=== PATIENT | female | born 1955 | race Two or more races ===

== ENCOUNTER 2024-12-14 20:02 | Emergency (ER) | payer MEDICARE, OTHER ==
[~2024-12-14] VITALS: Ht 147.3 cm; Wt 58.3 kg
--- NOTE | 2024-12-14 20:37 | ED.PDOC ---
Back pain HPI HPI Comments PT PRESENTED TO ED FOR RIGHT KNEE SWELLING/PAIN X1 DAY. PT DENIED NU MBNESS/TINGLING. NO SKIN DISCOLORATION NOTED. RIGHT KNEE, COOL TO TOUCH Time Seen by MD: 20:10 Reviewed Notes: Nurses Notes, Medications, Allergies Allergies: Coded Allergies: No Known Drug Allergy (Verified Allergy, Unknown, 12/14/24) Information Source: Patient Past Medical History PAST MEDICAL HISTORY: DM, High Lipids, HTN Surgical History: Denies all surgeries PRESTIDIGITATOR History: No Pertinent PRESTIDIGITATOR History Family History Family History: Reviewed,noncontributory to illness Social History Smoker: Non-Smoker Alcohol: Denies ETOH Use Drugs: Denies Drug Use Constitutional: denies: chills, diaphoresis, fatigue, fever, malaise, sweats, weakness, others EENTM: denies: blurred vision, double vision, ear bleeding, ear discharge, ear drainage, ear pain, ear ringing, eye pain, eye redness, hearing loss, mouth pain, mouth swelling, nasal discharge, nose bleeding, nose congestion, nose pain, photophobia, tearing, throat pain, throat swelling, voice changes, others Respiratory: denies: cough, hemoptysis, orthopnea, SOB at rest, shortness of breath, SOB with excertion, stridor, wheezing, others Cardiovascular: denies: chest pain, dizzy spells, diaphoresis, Dyspnea on exertion, edema, irregular heart beat, left arm pain, lightheadedness, palpitations, PND, syncope, others Gastrointestinal: denies: abdomen distended, abdominal pain, blood streaked bowels, constipated, diarrhea, dysphagia, difficulty swallowing, hematemesis, melena, nausea, poor appetite, poor fluid intake, rectal bleeding, rectal pain, vomiting, others Genitourinary: denies: abnormal vagina bleeding, burning, dyspareunia, dysuria, flank pain, frequency, hematuria, incontinence, pain, , vagina discharge, urgency, others Neurological: denies: dizziness, fainting, headache, left sided numbness, left sided weakness, numbness, paresthesia, pre-existing deficit, right sided numbness, right sided weakness, seizure, speech problems, tingling, tremors, weakness, others Musculoskeletal: reports: joint pain, joint swelling, muscle pain; denies: back pain, gout, muscle stiffness, neck pain, others Integumetry: denies: bruises, change in color, change in hair/nails, dryness, laceration, lesions, lumps, rash, wounds, others Allergic/Immunocompromised: denies: Difficulty Healing, Frequent Infections, Hives, Itching, others Hematologic/Lymphatic: denies: anemia, blood clots, easy bleeding, easy bruising, swollen glands, others Endocrine: denies: excessive hunger, excessive sweating, excessive thirst, excessive urination, flushing, intolerance to cold, intolerance to heat, unexplained weight gain, unexplained weight loss, others Psychiatric: denies: anxiety, bipolar disorder, depression, hopeless, panic disorder, schizophrenia, sleepless, suicidal, others Physical Exam General Appearance: No Apparent Distress, Normal HEENT: Pharynx Normal Neck: Full Range of Motion, Non-Tender, Normal Respiratory: Lungs Clear, No Respiratory Distress, Normal Breath Sounds Cardiovascular: No Edema, No JVD, No Murmur, No Gallop, Normal Peripheral Pulses, Regular Rate/Rhythm Breast Exam: Deferred Gastrointestinal: Non Tender, Soft Genitalia: Deferred Pelvic: Deferred Rectal: Deferred Extremities: No calf tenderness, Normal capillary refill, Normal inspection, Normal range of motion, Non-tender, No pedal edema Musculoskeletal : Location: Right Extremity Location: Knee (Moderate tenderness palpated over lateral aspect trace edema negative Sundeep's negative drawer test negative ballottement strength sensory motion intact positive pedal pulse positive popliteal pulse) Apperance: Normal Neurologic: Alert, No Motor Deficits, Normal Affect, Normal Mood, No Sensory Deficits Cerebellar Function: Normal Reflexes: Normal Skin: Dry, Normal Color, Warm Lymphatic: No Adenopathy Was a procedure done? Was a procedure done?: No Back Pain Differential Dx Differential Diagnosis: Fracture, Musculoskeletal Pain X-Ray, Labs, Meds, VS Vital Signs Date Time Temp Pulse Resp B/P (MAP) Pulse Ox O2 Delivery O2 Flow Rate FiO2 12/14/24 21:05 98.8 91 18 147/77 (100) 99 98.8 X-Ray, Labs, Meds, VS Comment Right knee x-ray shows no acute fractures, dislocations or osseous lesions. Lik elías a muscle strain. Patient placed in short knee stabilizing brace given [place] reports improvement in pain and function requesting discharge at this time script short-term anti-inflammatory advised on rice. Advised to follow up with her PCP in 2-3 days as necessary consider further imaging such as MRI if symptoms persist. ER return precautions given patient and daughter indicated understanding and agree with discharge plan of care Time of 1ST Reevaluation: 20:37 Reevaluation 1ST: Unchanged Time of 2ND Reevaluation: 22:59 Reevaluation 2ND: Improved Patient Education/Counseling: Diagnosis, Treatment, Prognosis, Need For Follow Up Family Education/Counseling: Diagnosis, Treatment, Prognosis, Need For Follow Up Departure 1 Departure Time of Disposition: 22:55 Impression: Primary Impression: Strain of knee and leg, right Qualified Codes: S86.911A - Strain of unspecified muscle(s) and tendon(s) at lower leg level, right leg, initial encounter Disposition: HOME / SELF CARE / HOMELESS Condition: Stable e-Prescriptions Diclofenac Sodium (Diclofenac Sodium Ec) 50 Mg Tab 1 TAB PO BID PRN for 4 Days, #8 TAB 1 Refill Prov: NORBERT GUTIERREZ 12/14/24 Discharged With: Relative (Sibling) Critical Care Note Critical Care Time?: No Stability Stability form required: No NORBERT GUTIERREZ Dec 14, 2024 20:37
--- NOTE | 2024-12-14 22:37 | DVH ---
EXAM: XY R KNEE 3V XRAY HISTORY: PAIN AND SWELLING COMPARISON: None TECHNIQUE: 3 views of the right knee were performed. FINDINGS: No acute fracture is identified about the right knee. No significant joint space narrowing. No evid ence of significant joint effusion. IMPRESSION: Unremarkable radiographs of the right knee.
[2024-12-14] MEDS ORDERED: DICL50TA4 PO (23:01)
[2024-12-14 23:51] VITALS: BP 185/80; TEMP 97.4
[2024-12-15] MEDS: HYDROcodone-ACET 5/325MG TAB PO ONE (00:01)
[2024-12-15 00:19] VITALS: PULSE 88; RESP 16; O2SAT 96
== END 2024-12-15 00:23 | disposition home or self-care (01) ==
LOC: ER 20:02
DX: S86.811A Strain of other muscle(s) and tendon(s) at lower leg level, right leg, initial encounter (principal); I10 Essential (primary) hypertension; E11.9 Type 2 diabetes mellitus without complications; X58.XXXA Exposure to other specified factors, initial encounter; Y93.89 Activity, other specified; Y92.89 Other specified places as the place of occurrence of the external cause; Y99.8 Other external cause status
CPT/HCPCS: 29530; 73562

== ENCOUNTER 2025-05-14 18:51 | Emergency (ER) | payer MEDICARE, MEDICAID ==
[~2025-05-14] VITALS: Ht 154.9 cm; Wt 68.4 kg
[~2025-05-14 18:51] MED LIST: DICL50TA4 PO
[2025-05-14] MEDS: METOPROLOL TARTRATE 50 MG TAB PO ONE (19:12)
[2025-05-14 19:23] LABS: Hematocrit 40.9 % (36.0-46.0); Hemoglobin 14.3 g/dL (12.2-16.2); Mean Corpuscular Hemoglobin 29.4 pg (28.0-32.0); Mean Corpuscular Volume 84.3 fL (80.0-100.0); Nucleated Red Blood Cells % 0.0 %
[2025-05-14 19:43] LABS: Alanine Aminotransferase 27 U/L (7-40); Calcium 10.1 mg/dL (8.7-10.4); Carbon Dioxide 23 mmol/L (20-31); Potassium 4.0 mmol/L (3.5-5.1)
[2025-05-14 19:44] LABS: Anion Gap 11 (5-15); BUN/Creatinine Ratio 15.7 (10.0-20.0); Bilirubin, Total 0.6 mg/dL (0.2-1.0); Blood Urea Nitrogen 11 mg/dL (9-23); Magnesium 2.0 mg/dL (1.6-2.6); Total Protein 8.0 g/dL (5.7-8.2)
--- NOTE | 2025-05-14 19:47 | ED.PDOC ---
History of Present Illness HPI Comments 69 y/o [place]an-speaking F presents with relative for c/c of anxiety, with associated shortness of breath. Patient reports on sudden and unprovoked onset of symptoms at 1600, this afternoon. She states on having no relief or improvement with stress-relieving tactics, such as meditation and outdoor strolls. Denies any chest pain, cough, fever, chills, or further acute symptoms. Chief Complaint: Anxiety Time Seen by MD: 19:00 Reviewed Notes: Nurses Notes, Medications, Allergies Allergies: Coded Allergies: No Known Drug Allergy (Verified Allergy, Unknown, 12/14/24) Home Meds Active Scripts Cefdinir (Cefdinir) 300 Mg Cap, 1 CAP PO BID for 7 Days, #14 CAP Prov:TATA SANCHES MD 05/14/25 Diclofenac Sodium (Diclofenac Sodium Ec) 50 Mg Tab, 1 TAB PO BID PRN for 4 Days, #8 TAB 1 Refill Prov:NORBERT GUTIERREZ 12/14/24 Information Source: Patient Mode of Arrival: Ambulatory Severity: Moderate Timing: Hours Duration: Since onset Prehospital treatment: None Past Medical History PAST MEDICAL HISTORY: DM, High Lipids, HTN Surgical History: Denies all surgeries STAPLE FIBER WASHER History: No Pertinent STAPLE FIBER WASHER History Family History Family History: Reviewed,noncontributory to illness Social History Smoker: Non-Smoker Alcohol: Denies ETOH Use Drugs: Denies Drug Use Lives In: Home All Other Systems: Reviewed and Negative (Comprehensive review of systems are negative unless stated in HPI) Physical Exam General Appearance: No Apparent Distress, Normal HEENT: Normal ENT Inspection, Pharynx Normal, TMs Normal Neck: Full Range of Motion, Non-Tender, Normal, Normal Inspection Respiratory: Chest Non-Tender, Lungs Clear, No Accessory Muscle Use, No Respiratory Distress, Normal Breath Sounds Cardiovascular: No Edema, No JVD, No Murmur, No Gallop, Normal Peripheral Pulses, Tachycardia (regular rhythm) Breast Exam: Deferred Gastrointestinal: No Organomegaly, Non Tender, No Pulsatile Mass, Normal Bowel Sounds, Soft Genitalia: Deferred Pelvic: Deferred Rectal: Deferred Extremities: No calf tenderness, Normal capillary refill, Normal inspection, Normal range of motion, Non-tender, No pedal edema Musculoskeletal : Apperance: Normal Neurologic: Alert, advertising rep II-XII nml as Tested, No Motor Deficits, Normal Mood, No Sensory Deficits, Other (Anxious affect ) Cerebellar Function: Normal Reflexes: Normal Skin: Dry, Normal Color, Warm Lymphatic: No Adenopathy Was a procedure done? Was a procedure done?: No Differential Dx Considerations may include: anxiety, panic attack, hopelessness, dehydration, electrolyte imbalance, UTI among others X-Ray, Labs, Meds, VS Vital Signs Date Time Temp Pulse Resp B/P (MAP) Pulse Ox O2 Delivery O2 Flow Rate FiO2 05/15/25 00:04 98.5 71 20 158/79 (105) 96 98.5 05/14/25 20:58 86 14 97 Room Air* 0 21 05/14/25 20:40 97.7 86 14 156/76 (102) 97 97.7 05/14/25 19:12 98 229/100 05/14/25 18:54 98.1 0 17 229/100 98 98.1 Lab Test 05/14/25 23:07 05/14/25 20:30 05/14/25 19:10 Range/Units Lactic Acid Level 2.2 *H 2.4 *H 3.2 *H 0.4-2.0 mmol/L Troponin I High Sensitivity 6 5 </=34 ng/L White Blood Count 16.3 H 4.4-10.8 10^3/uL Red Blood Count 4.86 4.0-5.20 10^6/uL Hemoglobin 14.3 12.2-16.2 g/dL Hematocrit 40.9 36.0-46.0 % Mean Corpuscular Volume 84.3 80.0-100.0 fL Mean Corpuscular Hemoglobin 29.4 28.0-32.0 pg Mean Corpuscular Hemoglobin Concent 34.9 32.0-36.0 g/dL Red Cell Distribution Width 12.8 11.8-14.3 % Platelet Count 363 140-450 10^3/uL Mean Platelet Volume 8.4 6.9-10.8 fL Neutrophils (%) (Auto) 68.3 37.0-80.0 % Lymphocytes (%) (Auto) 21.6 10.0-50.0 % Monocytes (%) (Auto) 6.5 0.0-12.0 % Eosinophils (%) (Auto) 2.4 0.0-7.0 % Basophils (%) (Auto) 1.2 0.0-2.0 % Neutrophils # (Auto) 11.2 H 1.6-8.6 10 ^3/uL Lymphocytes # (Auto) 3.5 0.4-5.4 10 ^3/uL Monocytes # (Auto) 1.1 0-1.3 10 ^3/uL Eosinophils # (Auto) 0.4 0-0.8 10 ^3/uL Basophils # (Auto) 0.2 0-0.2 10 ^3/uL Nucleated Red Blood Cells 0.0 % Sodium Level 131 L 136-145 mmol/L Potassium Level 4.0 3.5-5.1 mmol/L Chloride Level 97 L 98-107 mmol/L Carbon Dioxide Level 23 20-31 mmol/L Anion Gap 11 5-15 Blood Urea Nitrogen 11 9-23 mg/dL Creatinine 0.70 0.550-1.02 mg/dL Glomerular Filtration Rate Calc 94 >90 mL/min BUN/Creatinine Ratio 15.7 10.0-20.0 Serum Glucose 170 H 74-106 mg/dL Calcium Level 10.1 8.7-10.4 mg/dL Magnesium Level 2.0 1.6-2.6 mg/dL Total Bilirubin 0.6 0.2-1.0 mg/dL Aspartate Amino Transferase (AST) 22 13-40 U/L Alanine Aminotransferase (ALT) 27 7-40 U/L Alkaline Phosphatase 119 H 46-116 U/L B-Type Natriuretic Peptide 12.86 0-100 pg/mL Total Protein 8.0 5.7-8.2 g/dL Albumin 4.8 3.2-4.8 g/dL Thyroid Stimulating Hormone (TSH) 2.55 0.55-4.78 uIU/mL Free Thyroxine (T4) Calculated 1.45 0.89-1.76 ng/dL Current Medications Medications (Trade) Dose Ordered Sig/Akanksha Route Start Time Stop Time Status Last Admin Metoprolol Tartrate (Lopressor Tablet) 50 mg ONCE ONCE PO 05/14/25 19:00 05/14/25 19:01 DC 05/14/25 19:12 Sodium Chloride 1,000 ml @ 1,000 mls/hr Q1H ONCE IV 05/14/25 20:15 05/14/25 21:14 DC 05/14/25 20:15 Piperacillin Sod/ Tazobactam Sod 100 ml @ 100 mls/hr ONCE ONCE IV 05/14/25 20:15 05/14/25 21:14 DC 05/14/25 20:15 Amoxicillin/ Clavulanate Potassium (Augmentin Tablet) 875 mg ONCE ONCE PO 05/14/25 22:30 05/14/25 22:31 DC 05/14/25 22:55 [place] [address] Ph: [phone] DIAGNOSTIC IMAGING Diagnostic Imaging Report : [id number] Signed PATIENT: TESHA CUEVAS ACCT: [id number] UNIT: [id number] : 1955 LOC: ER ROOM / BED: / AGE / SEX: 69 / F ADM STATUS: REG ER SERVICE 43 ORDERING PHYSICIAN: TATA SANCHES MD PROCEDURE(s): CXR1 - CHEST XRAY 1 VIEW REASON: SOB ORDER NUMBER(s): [id number], ACCESSION NUMBER(s): [id number] CHEST RADIOGRAPH Indication: SOB Technique: Single frontal view of the chest was obtained COMPARISON: None FINDINGS: Cardiac silhouette is borderline in size. Slight prominence of the pulmonary vasculature. No focal airspace disease. No significant pleural effusions. Bones and soft tissues demonstrate no significant abnormality. IMPRESSION: Cardiomegaly with mild pulmonary venous congestion. ATED BY: KENNETH DALAL MD DICTATED DATE/TIME: 05/14/252123 SIGNED BY: KENNETH DALAL MD SIGNED DATE/TIME: 05/14/252123 CC: Time of 1ST Reevaluation: 19:30 Reevaluation 1ST: Unchanged Patient Education/Counseling: Diagnosis, Treatment, Need For Follow Up Family Education/Counseling: Diagnosis, Treatment, Need For Follow Up SEPSIS Sepsis Screen Date sepsis recognized/suspect: May 14, 2025 Time Sepsis recognized/suspect: 1854 Recent Procedure: No On Antibiotic Therapy: No Respiratory Rate >20: No Heart Rate >90: Yes Temp<36 C (96.8 F) or >38.3 C: No SBP <90 or MAP <65 mmHG: No New Acute Mental Status Change: No Is the patient on CPAP, BIPAP,: No Physician Orders Electrocardigram (05/14/25 18:59) Blood Culture (05/14/25 20:10) Chest Xray 1 View (05/14/25 20:44) Vital Signs Date Time Temp Pulse Resp B/P (MAP) Pulse Ox O2 Delivery O2 Flow Rate FiO2 05/15/25 00:04 98.5 71 20 158/79 (105) 96 98.5 05/14/25 20:58 86 14 97 Room Air* 0 21 05/14/25 20:40 97.7 86 14 156/76 (102) 97 97.7 05/14/25 19:12 98 229/100 05/14/25 18:54 98.1 0 17 229/100 98 98.1 Laboratory Tests Test 05/14/25 19:10 05/14/25 20:30 05/14/25 23:07 Lactic Acid Level 3.2 mmol/L (0.4-2.0) *H 2.4 mmol/L (0.4-2.0) *H 2.2 mmol/L (0.4-2.0) *H White Blood Count 16.3 10^3/uL (4.4-10.8) H Departure 1 Departure Time of Disposition: 21:00 Impression: Primary Impression: Palpitations Disposition: 01 HOME / SELF CARE / HOMELESS Condition: Stable e-Prescriptions Cefdinir (Cefdinir) 300 Mg Cap 1 CAP PO BID for 7 Days, #14 CAP Prov: TATA SANCHES MD 05/14/25 Discharged With: Relative Critical Care Note Critical Care Time?: No Stability Stability form required: No Heart Score Heart Score: Heart Score Response (Comments) Value History N/A 0 EKG N/A 0 Age N/A 0 Risk Factors N/A 0 Troponin N/A 0 Total 0 I personally scribed for TATA SANCHES MD ([email or web address]) on 05/14/25 at 19:47. Electronically submitted by Michael Mcdonough ([email or web address]). I personally scribed for TATA SANCHES MD ([email or web address]) on 05/14/25 at 22:12. Electronically submitted by Michael Mcdonough ([email or web address]). TATA SANCHES MD May 14, 2025 19:47
[2025-05-14 19:57] LABS: Alkaline Phosphatase 119 U/L (46-116); Chloride 97 mmol/L (98-107); Glucose 170 mg/dL (74-106); Sodium 131 mmol/L (136-145)
[2025-05-14 19:58] LABS: Albumin 4.8 g/dL (3.2-4.8)
[2025-05-14 20:06] LABS: Lactic Acid w/Reflex 3.2 mmol/L (0.4-2.0)
[2025-05-14] MEDS: PIPERACILLIN-TAZOB 3.375GM 100 ML IV ONE (20:15)
[2025-05-14] MEDS: SODIUM CHLORIDE 0.9% 1,000 ML IV ONE (20:15)
[2025-05-14 20:58] VITALS: PULSE 86; RESP 14; O2SAT 97
--- NOTE | 2025-05-14 21:27 | DVH ---
CHEST RADIOGRAPH Indication: SOB Technique: Single frontal view of the chest was obtained COMPARISON: None FINDINGS: Cardiac silhouette is borderline in size. Slight prominence of the pulmonary vasculature. No focal a irspace disease. No significant pleural effusions. Bones and soft tissues demonstrate no significant abnormality. IMPRESSION: Cardiomegaly with mild pulmonary venous congestion.
[2025-05-14] MEDS ORDERED: CEFD300C2 PO (22:16)
[2025-05-14] MEDS: AMOXICILLIN/CLAVUL 875 MG TAB PO ONE (22:55)
[2025-05-15 00:04] VITALS: BP 158/79; PULSE 71; RESP 20; TEMP 98.5; O2SAT 96
[2025-05-15 00:19] LABS: Lactic Acid w/Reflex 2.2 mmol/L (0.4-2.0)
== END 2025-05-15 00:08 | disposition home or self-care (01) ==
LOC: ER 18:54
DX: R00.2 Palpitations (principal); F41.9 Anxiety disorder, unspecified; R06.02 Shortness of breath; E11.9 Type 2 diabetes mellitus without complications; Z79.899 Other long term (current) drug therapy
CPT/HCPCS: 36415; 71045; 80053; 83605; 83735; 83880; 84439; 84443; 84484; 85025; 87040; 96365; 99285; J2543